=== PATIENT | female | born 1925 | race Caucasian/White ===

== ENCOUNTER 2016-12-09 16:01 | Inpatient (IN) | payer SELFPAY | END 2016-12-10 15:55 | disposition home or self-care (01) | DRG 951 | LOC: VM.MS 16:01 | PROVIDERS: ADMIT Internal Medicine | DX: Z75.5 Holiday relief care (principal) ==

== ENCOUNTER 2017-04-18 06:43 | Emergency (ER) | payer MEDICARE, BC ==
[2017-04-18 07:01] VITALS: BP 184/78
--- NOTE | 2017-04-18 21:29 | ER ---
Date of Service: 04/18/2017 SUBJECTIVE: Harper presents to the emergency room with complaint after a fall. The patient states that she was attempting to get up to use her commode and she fell onto her back and right arm. She states that she did not strike her head and has complete recollection of the entire event. Her only complaints are that of right upper arm pain and pain to the posterior aspect of her right shoulder. PAST MEDICAL HISTORY: 1. Asthma. 2. Recurrent pneumonia. 3. Hyperlipidemia. 4. Hypertension. 5. Chronic constipation. 6. Gastroesophageal reflux disease. 7. Urinary frequency. 8. Kyphoscoliosis. 9. Chronic left shoulder dislocation. 10.Hypothyroidism. 11.Depression. 12.Anxiety. 13.Polymyalgia rheumatica. MEDICATIONS: Please see nurse's notes. ALLERGIES: 1. Bee venom. 2. Morphine. 3. Penicillin. 4. Codeine. REVIEW OF SYSTEMS: General: No fever or chills. HEENT: Denies striking her head. Denies any blurred vision. Chest: Please see history of present illness. Complains of pain again to her posterior aspect of her right chest/right shoulder area. Denies any shortness of breath or substernal chest pain. Gastrointestinal: No nausea, vomiting, or diarrhea. No melena, hematochezia, or hematemesis. Genitourinary: Denies any dysuria. Pelvis: Denies any pelvic pain. Musculoskeletal: Complains only of discomfort to the midportion of her right upper arm/elbow. No complaints of discomfort in her left arm or lower extremities. Neurologic: Denies any numbness or tingling in her extremities. No difficulties with speech or ambulation. PHYSICAL EXAMINATION: General: This is an 89-year-old female patient, who is in no acute distress. Vital Signs: Blood pressure is 184/78, was rechecked was 165/74, heart rate is 73, temperature was 36.0, respiratory rate is 20, and O2 saturations 99%. Skin: Warm, pink, and dry. HEENT: Head is normocephalic, atraumatic. Eyes, PERRLA. Extraocular movements are intact. Mouth, oral mucosa is moist. Lungs: Clear to auscultation. Heart: Regular rate and rhythm. Abdomen: Soft, nontender. There is no hepatosplenomegaly noted. There is no masses noted. Extremities: She does have significant ecchymosis to the midportion of her right upper arm. She also does have some hematoma in this area as well. No obvious gross bony deformity noted to the shoulder or to the entirety of the right upper extremity. She does move at the shoulder, elbow, and wrist without difficulty. Remainder of her examination of her extremities is within normal limits. Back: Examination of her back does reveal a small superficial abrasion to her right scapular area. No obvious bony deformity noted in the area. RADIOGRAPHIC DATA: Radiographs of the patient's right humerus to include the shoulder and elbow were obtained and did not reveal any acute bony deformity. Also chest x-ray was obtained and did not reveal any acute pathology, rib fractures, or other abnormality. ASSESSMENT: Contusions to right upper arm and posterior chest/shoulder post fall. PLAN: The patient will be discharged. She can ice the area for 10 to 15 minutes every 1 to 2 hours as needed. Return to the ER if she develops any chest pain, shortness of breath, lightheadedness, abdominal pain, or other worrisome signs or symptoms. All questions were answered. BRIANK: 04/18/2017 08:22:47 MODL: 04/18/2017 15:01:58 /[id number]
== END 2017-04-18 08:10 | disposition home or self-care (01) ==
LOC: VM.ED 06:43
DX: S40.021A Contusion of right upper arm, initial encounter (principal); S20.211A Contusion of right front wall of thorax, initial encounter; S40.011A Contusion of right shoulder, initial encounter; J45.909 Unspecified asthma, uncomplicated; I10 Essential (primary) hypertension; K21.9 Gastro-esophageal reflux disease without esophagitis; E03.9 Hypothyroidism, unspecified; Z91.030 Bee allergy status; Z88.5 Allergy status to narcotic agent; Z88.0 Allergy status to penicillin; W19.XXXA Unspecified fall, initial encounter
CPT/HCPCS: 71010; 73060-RT; 99282-GF; 99284